=== PATIENT | male | born 1995 | race Two or more races ===

== ENCOUNTER 2023-03-18 14:03 | Emergency (ER) | payer SELFPAY ==
[2023-03-18 14:11] VITALS: BP 170/98; PULSE 65; RESP 19; TEMP 37.2; O2SAT 97; BMI 37.3
--- NOTE | 2023-03-18 14:15 | [facility].EDGENADL ---
Discharge Plan Disposition Patient Disposition: Home, Self-Care Condition: Good Prescriptions Prescriptions: New cephalexin 750 mg capsule 750 mg PO BID 7 Days Qty: 14 0RF bacitracin 500 unit/gram ointment 1 applic topical BID Qty: 14 0RF Referrals Follow up/Referrals: Provider,Referral, [Primary Care Provider] - See instructions Activity Restrictions/Add. Instructions Additional Instructions/Restrictions: You were evaluated in the emergency department today. Please keep your wound clean and dry. 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 Do not submerge under any water. Your stitches will need to be removed in approximately 10 to 12 days. Monitor for any signs of infection, such as redness, warmth, or pus draining from the wounds. Return to the emergency department should you develop any of these issues. Follow-up with your primary care provider for reassessment. Clinical Impressions Clinical Impression: Laceration of multiple sites of left hand and fingers Qualifiers: Encounter type: initial encounter Qualified Code(s): S61.412A - Laceration without foreign body of left hand, initial encounter Instructions Patient Instructions: DI for Laceration Repair Discharge ED Provider: Ada Good General Adult HPI General Chief complaint: Wound/Laceration Stated complaint: AO 03/18, left finger laceration Time Seen by Provider: 03/18/23 14:10 History of Present Illness HPI narrative: This patient is a 27-year-old male who denies significant past medical history presented to the emergency department for evaluation with concern for lacerations to the left index and middle finger. He states that he was using clippers at work when he accidentally cut his fingers. The wounds are superficial and he denies any numbness, tingling, or other concerns. He reports he still has full range of motion. He was well prior to this. He denies any significant past medical history. He is unsure when his last tetanus shot was. Related Data Previous Rx's Medication Instructions Recorded bacitracin 500 unit/gram topical 1 applic topical BID #14 grams 03/18/23 ointment cephalexin 750 mg capsule 750 mg PO BID 7 days #14 caps 03/18/23 Allergies Allergy/AdvReac Type Severity Reaction Status Date / Time No Known Allergies Allergy Verified 03/18/23 14:17 [facility] Disclaimer: The information contained in this section may have been updated after the patient was seen, as this information can be updated by other users. Social History Smoking Status: Never smoker alcohol intake: never current occupational status: employed Travel in the last 8 weeks: None ROS Obtained: Yes All systems reviewed & no additional complaints except as documented Physical Exam General General appearance: alert and in no apparent distress Head Head exam: atraumatic and normocephalic Eye Eye exam: Present normal appearance, PERRL and EOMI ENT ENT exam: Present normal exam, normal oropharynx, mucous membranes moist and normal external ear exam Neck Neck exam: Present normal inspection, full ROM and trachea midline; Absent tenderness Chest Chest inspection: Present normal inspection and symmetric chest wall rise; Absent tenderness Respiratory Respiratory exam: Present normal lung sounds bilaterally; Absent respiratory distress, wheezes, stridor or accessory muscle use Cardiovascular Cardiovascular exam: Present regular rate and normal rhythm Abdominal Exam Abdominal exam: Present soft; Absent distention, tenderness or guarding Extremities Exam Extremities exam: Present full ROM, normal capillary refill and other (Laceration as below); Absent tenderness or edema Expanded Upper Extremity Exam Left: Hand exam: Present other (Superficial lacerations to the proximal aspect of the palmar left first and second digits. Neurovascularl
[2023-03-18 14:30] VITALS: BP 138/74; PULSE 79; O2SAT 96
[2023-03-18 15:01] VITALS: BP 138/73; PULSE 90; O2SAT 95
[2023-03-18 15:24] VITALS: BP 145/80; PULSE 65; RESP 19; TEMP 36.7
== END 2023-03-18 15:26 | disposition home or self-care (01) ==
PROVIDERS: Emergency Provider Emergency Medicine
DX: S61.211A Laceration without foreign body of left index finger without damage to nail, initial encounter (principal); S61.213A Laceration without foreign body of left middle finger without damage to nail, initial encounter; W26.8XXA Contact with other sharp object(s), not elsewhere classified, initial encounter; Y99.0 Civilian activity done for income or pay; Z23 Encounter for immunization
CPT/HCPCS: 12002; 90715; 96372; 99283